=== PATIENT | female | born 1990 | race Caucasian/White ===

== ENCOUNTER 2016-08-30 16:20 | Emergency (ER) | payer OTHER ==
--- NOTE | 2016-08-30 16:33 | PDOC ---
Rapid Medical Evaluation Time Seen by Provider: 08/30/16 16:29 Medical Evaluation: Allergies Allergy/AdvReac Type Severity Reaction Status Date / Time No Known Allergies Allergy Verified 08/30/16 16:29 08/30/16 16:30 RME Note: I have performed a brief, in-person evaluation of this patient . This patient presents with CC: Post C section ; noted discharge from site Pertinent PE findings are: 1 cm open area left lateral surgical site I have ordered: nothing The patient will proceed to ED for further evaluation. JR
[2016-08-30 16:39] VITALS: BP 124/86; PULSE 78; TEMP 97.6; BMI 32.4
--- NOTE | 2016-08-30 17:15 | PDOC ---
History of Present Illness - General Chief Complaint: Wound Stated Complaint: INFECTED WOUND Time Seen by Provider: 08/30/16 16:29 History Source: Patient Exam Limitations: No Limitations - History of Present Illness Initial Comments: 08/30/16 17:09 25 yr female s/p csection 07/19/16 presents with one day open are at the surgical site. no drainage or fever, no fouls smell. Timing/Duration: reports: just prior to arrival Severity: Yes: mild Past History - Past Medical History Allergies/Adverse Reactions: Allergies Allergy/AdvReac Type Severity Reaction Status Date / Time No Known Allergies Allergy Verified 08/30/16 16:29 Home Medications: Ambulatory Orders NK [No Known Home Medication] 08/30/16 Asthma: No Cancer: No Cardiac Disorders: No Diabetes: No HTN: No Seizures: No Thyroid Disease: No Other medical history: none - Surgical History Abdominal Surgery: Yes (c section) - Immunization History Immunization Up to Date: Yes - Psycho/Social/Smoking Cessation Hx Anxiety: No Suicidal Ideation: No Smoking History: Never smoked Have you smoked in the past 12 months: No Number of Cigarettes Smoked Daily: 0 Cigars Per Day: 0 Information on smoking cessation initiated: No Hx Alcohol Use: No Drug/Substance Use Hx: No Substance Use Type: None Hx Substance Use Treatment: No Review of Systems - Review of Systems Able to Perform ROS?: Yes Is the patient limited Bengali proficient: No Constitutional: No: Symptoms Reported HEENTM: No: Symptoms Reported Respiratory: No: Symptoms reported Cardiac (ROS): No: Symptoms Reported ABD/GI: No: Symptoms Reported : No: Symptoms Reported Musculoskeletal: No: Symptoms Reported Integumentary: Yes: Symptoms Reported *Physical Exam - Vital Signs Last Vital Signs Temp Pulse Resp BP Pulse Ox 97.6 F 78 18 124/86 100 08/30/16 16:29 08/30/16 16:29 08/30/16 16:29 08/30/16 16:29 08/30/16 16:29 - Physical Exam General Appearance: Yes: Nourished, Appropriately Dressed HEENT: positive: EOMI, SAULO Gastrointestinal/Abdominal: positive: Normal Bowel Sounds, Soft, Other (left lowerabdomen with well healed surgical transverese scar. outer left corner with 1.0cm open area no drainage, superficial ) Procedures - Laceration/Wound Repair Left Lower Abdomen Wound Length: to 2.5 cm Wound Explored: clean Wound's Depth, Shape: superficial Progress: 08/30/16 17:11 cleaned with saline and betadine, bacitracin and bandaid placed Medical Decision Making - Medical Decision Making 08/30/16 17:11 cc: open wound for less than 12hrs surgical csection 07/19/16 no drainage or discharge will clean and apply bacitracin and bandaid to the area. wound care explained to pt via emirati translation all questions asked and answered *DC/Admit/Observation/Transfer Diagnosis at time of Disposition: Wound dehiscence, - Discharge Dispostion Disposition: HOME Condition at time of disposition: Good - Patient Instructions Additional Instructions: keep clean with antibacterial soap and water dry completely apply a thin layer of Bacitracin antibacterial ointment and cover with a bandaid until healed return to ER or see your structural metal fabricator apprentice if any worsening symptoms Mantener limpio con jabn antibacteriano y agua Secar completamente aplicar vikram nicholas capa de [place] antibacteriana de Bacitracina y cubrir con un bandaid hasta que se cure Regrese a la narda de emergencias o consulte a bolton gineclogo si hay algn empeoramiento de los sntomas
== END 2016-08-30 17:22 | disposition home or self-care (01) ==
LOC: JERFT 16:20
DX: O90.0 Disruption of cesarean delivery wound (principal)
CPT/HCPCS: 99281-25

== ENCOUNTER 2017-07-20 20:06 | Emergency (ER) | payer OTHER ==
--- NOTE | 2017-07-20 21:33 | PDOC ---
Rapid Medical Evaluation Time Seen by Provider: 07/20/17 21:28 Medical Evaluation: Allergies Allergy/AdvReac Type Severity Reaction Status Date / Time No Known Allergies Allergy Verified 08/30/16 16:29 I have performed a brief in-person evaluation of this patient. The patient presents with a chief complaint of: LLQ abd pain radiating to back x 5 days with dysuria Pertinent physical exam findings: TTP of left pelvis, LLQ and left flank. No CVA TTP I have ordered the following: UA/hcg/culture, labs The patient will proceed to the ED for further evaluation.
[2017-07-20 21:34] VITALS: BP 147/102; PULSE 98; TEMP 99.4; BMI 30.2
[2017-07-20 22:11] LABS: BASO % 0.3 % (0-2.0); EOS % 0.8 % (0-4.5); LYMPH % 32.9 % (8-40); MCH 29.2 pg (25.7-33.7); MCHC 33.3 g/dl (32.0-36.0); MEAN CELL VOLUME 87.7 fl (80-96); MEAN PLT VOLUME 8.8 fl (7.5-11.1); MONO % 4.8 % (3.8-10.2); NEUT % 61.2 % (42.8-82.8); PLATELET COUNT 274 K/MM3 (134-434); RBC 4.79 M/mm3 (3.60-5.2); RDW 13.4 % (11.6-15.6); WHITE BLOOD COUNT 11.3 K/mm3 (4.0-10.0)
[2017-07-20 22:31] LABS: HCG,QUALITATIVE URINE NEGATIVE
[2017-07-20 22:33] LABS: URINE APPEARANCE CLEAR; URINE BILIRUBIN NEGATIVE (NEGATIVE); URINE BLOOD 2+ (NEGATIVE); URINE COLOR STRAW; URINE GLUCOSE (UA) NEGATIVE (NEGATIVE); URINE KETONE NEGATIVE (NEGATIVE); URINE LEUK ESTERASE NEGATIVE (NEGATIVE); URINE NITRITE NEGATIVE (NEGATIVE); URINE PROTEIN NEGATIVE (NEGATIVE); URINE UROBILINOGEN NEGATIVE mg/dL (0.2-1.0)
[2017-07-20 22:44] LABS: EPI CELLS RARE /HPF (FEW)
[2017-07-20 22:50] LABS: ALBUMIN 4.1 g/dl (3.4-5.0); ANION GAP 9 (8-16); BLOOD UREA NITROGEN 15 mg/dL (7-18); CHLORIDE 104 mmol/L (98-107); CO2 27 mmol/L (21-32); GLUCOSE,RANDOM 95 mg/dL (74-106); POTASSIUM 4.2 mmol/L (3.5-5.1); SGOT/AST 21 U/L (15-37); SGPT/ALT 34 U/L (12-78); SODIUM 140 mmol/L (136-145)
[2017-07-20 22:53] LABS: ALK PHOS 123 U/L (45-117); BILIRUBIN,TOTAL 0.2 mg/dL (0.2-1.0); CREATININE 0.9 mg/dL (0.55-1.02); TOT PROT 7.7 g/dl (6.4-8.2)
[2017-07-20] MEDS ORDERED: LEVOFLOXACIN 500 MG TABLET (FP) PO ONE (23:34)
[2017-07-20] MEDS ORDERED: IBUPROFEN 400 MG TABLET (FP) PO ONE (23:34)
--- NOTE | 2017-07-20 23:34 | PDOC ---
History of Present Illness - General History Source: Patient <Facundo Velasco - Last Filed: 07/20/17 23:36> - History of Present Illness Initial Comments: 07/20/17 23:43 Patient is a 26 F, with no significant PMHx, who presents with 5 days dysuria. Patient admits to LLQ abdominal pain upon urination that radiates to her back. Denies fever, chills. Denies hematuria, frequency, incontinence, or other urinary complaints. Surgical Hx: (Jun 2016) <Tory Aguilar - Last Filed: 07/20/17 23:45> - General Chief Complaint: Pain, Acute Stated Complaint: ABD PAIN Time Seen by Provider: 07/20/17 21:28 Past History - Past Medical History Asthma: No Cancer: No Cardiac Disorders: No COPD: No Diabetes: No HTN: No Seizures: No Thyroid Disease: No - Surgical History Abdominal Surgery: Yes (c section) - Immunization History Immunization Up to Date: Yes - Suicide/Smoking/Psychosocial Hx Smoking History: Never smoked Have you smoked in the past 12 months: No Number of Cigarettes Smoked Daily: 0 Cigars Per Day: 0 Hx Alcohol Use: No Drug/Substance Use Hx: No Substance Use Type: None Hx Substance Use Treatment: No <KbrobynFacundo ann - Last Filed: 07/20/17 23:36> <Tory Aguilar - Last Filed: 07/20/17 23:45> - Past Medical History Allergies/Adverse Reactions: Allergies Allergy/AdvReac Type Severity Reaction Status Date / Time No Known Allergies Allergy Verified 07/20/17 21:31 Home Medications: Ambulatory Orders Acetaminophen [Tylenol] 325 mg PO QID PRN 07/20/17 Ibuprofen 800 mg PO TID #30 tablet 07/20/17 Levofloxacin [Levaquin -] 500 mg PO DAILY #4 tablet 07/20/17 Review of Systems - Review of Systems Comments:: 07/20/17 23:43 CONSTITUTIONAL: Absent: fever, no chills, no fatigue EYES: Absent: visual changes ENT: Absent: ear pain, no sore throat CARDIOVASCULAR: Absent: chest pain, no palpitations RESPIRATORY: Absent: cough, no SOB GI: Present: LLQ abdominal pain, flank pain. Absent:no nausea, no vomiting, no constipation, no diarrhea GENITOURINARY: Present: dysuria Absent:, no frequency, no hematuria MUSCULOSKELETAL: Absent: no arthralgia, no myalgia SKIN: Absent: rash <Tory Aguilar - Last Filed: 07/20/17 23:45> *Physical Exam - Vital Signs Last Vital Signs Temp Pulse Resp BP Pulse Ox 99.4 F 98 H 22 147/102 98 07/20/17 21:33 07/20/17 21:33 07/20/17 21:33 07/20/17 21:33 07/20/17 21:33 <KbrobiFacundo - Last Filed: 07/20/17 23:36> - Vital Signs Last Vital Signs Temp Pulse Resp BP Pulse Ox 99.4 F 98 H 22 147/102 98 07/20/17 21:33 07/20/17 21:33 07/20/17 21:33 07/20/17 21:33 07/20/17 21:33 - Physical Exam Comments: 07/20/17 23:43 GENERAL: Well-appearing, well-nourished. No apparent distress. HEENT: Normocephalic, atraumatic. PERRL, EOM intact. CARDIOVASCULAR: Normal S1, S2. Regular rate and rhythm. PULMONARY: Clear to auscultation bilaterally. BACK/ABDOMEN: Mild left cva tenderness.Mild suprapubic tenderness.Soft, non-distended EXTREMITIES: Normal ROM in all four extremities. No gross deformities. SKIN: Warm, dry. No rash NEUROLOGICAL: No focal neurological deficits. <LaurenTory - Last Filed: 07/20/17 23:45> ED Treatment Course - LABORATORY CBC & Chemistry Diagram: 07/20/17 21:41 07/20/17 21:41 - ADDITIONAL ORDERS Additional order review: Laboratory Results 07/20/17 07/20/17 21:41 21:30 Sodium 140 Potassium 4.2 Chloride 104 Carbon Dioxide 27 Anion Gap 9 BUN 15 Creatinine 0.9 Creat Clearance w eGFR > 60 Random Glucose 95 Calcium 9.0 Total Bilirubin 0.2 AST 21 ALT 34 Alkaline Phosphatase 123 H Total Protein 7.7 Albumin 4.1 Urine Color Straw Urine Appearance Clear Urine pH 6.0 Ur Specific [place] 1.009 Urine Protein Negative Urine Glucose (UA) Negative Urine Ketones Negative Urine Blood 2+ H Urine Nitrite Negative Urine Bilirubin Negative Urine Urobilinogen Negative Ur Leukocyte Esterase Negative Urine WBC (Auto) 1 Urine RBC (Auto) 16 Ur Epithelial Cells Rare Urine HCG, Qual Negative 07/20/17 21:41 RBC 4.79 MCV 87.7 MCHC 33.3 RDW 13.4 MPV 8.8 Neutrophils % 61.2 Lymphocytes % 32.9 D Monocytes % 4.8 Eosinophils % 0.8 Basophils % 0.3 <Facundo Velasco - Last Filed: 07/20/17 23:36> - LABORATORY CBC & Chemistry Diagram: 07/20/17 21:41 07/20/17 21:41 - ADDITIONAL ORDERS Additional order review: Laboratory Results 07/20/17 07/20/17 21:41 21:30 Sodium 140 Potassium 4.2 Chloride 104 Carbon Dioxide 27 Anion Gap 9 BUN 15 Creatinine 0.9 Creat Clearance w eGFR > 60 Random Glucose 95 Calcium 9.0 Total Bilirubin 0.2 AST 21 ALT 34 Alkaline Phosphatase 123 H Total Protein 7.7 Albumin 4.1 Urine Color Straw Urine Appearance Clear Urine pH 6.0 Ur Specific [place] 1.009 Urine Protein Negative Urine Glucose (UA) Negative Urine Ketones Negative Urine Blood 2+ H Urine Nitrite Negative Urine Bilirubin Negative Urine Urobilinogen Negative Ur Leukocyte Esterase Negative Urine WBC (Auto) 1 Urine RBC (Auto) 16 Ur Epithelial Cells Rare Urine HCG, Qual Negative 07/20/17 21:41 RBC 4.79 MCV 87.7 MCHC 33.3 RDW 13.4 MPV 8.8 Neutrophils % 61.2 Lymphocytes % 32.9 D Monocytes % 4.8 Eosinophils % 0.8 Basophils % 0.3 <Tory Aguilar - Last Filed: 07/20/17 23:45> Medical Decision Making - Medical Decision Making 07/20/17 23:39 Dr. Velasco: The scribe's documentation has been prepared under my direction and personally reviewed by me in its entirery. I confirm that the note above accurately reflects all work, treatment, procedures, and medical decision making performed by me. Patient with symptoms of dysuria, although UA is negative for UTI. Will treat symptomatically. Pt to follow up with her pcp. <Facundo Velasco - Last Filed: 07/20/17 23:36> *DC/Admit/Observation/Transfer - Discharge Dispostion Admit: No <Facunod Velasco - Last Filed: 07/20/17 23:36> - Attestations Scribe Attestion: 07/20/17 23:45 Documentation prepared by Tory Aguilar, acting as senior medical writer for Facundo Velasco MD. <Tory Aguilar - Last Filed: 07/20/17 23:45> Diagnosis at time of Disposition: Dysuria - Discharge Dispostion Disposition: HOME Condition at time of disposition: Stable - Prescriptions Prescriptions: Ibuprofen 800 mg PO TID #30 tablet Levofloxacin [Levaquin -] 500 mg PO DAILY #4 tablet - Referrals Referrals: Irving Corcoran MD [Staff Physician] - - Patient Instructions Printed Discharge Instructions: DI for Dysuria -- Adult Additional Instructions: Take medications as directed.. Drink plenty of fluids. Follow up with your primary care doctor as soon as possible. Return if any problems. Print Language: PALAUAN
[2017-07-20] MEDS ORDERED: LEVOFLOXACIN 500 MG TABLET (FP) ONE (23:48)
[2017-07-20] MEDS ORDERED: IBUPROFEN 600 MG TABLET (FP) PO ONE (23:48)
== END 2017-07-20 23:50 | disposition home or self-care (01) ==
LOC: JER 20:06
DX: R30.0 Dysuria (principal)
CPT/HCPCS: 36415; 80053; 81003; 81015; 84703; 85025; 87086; 99282-25

== ENCOUNTER 2017-11-07 16:55 | Emergency (ER) | payer OTHER ==
--- NOTE | 2017-11-07 17:04 | PDOC ---
Rapid Medical Evaluation Time Seen by Provider: 11/07/17 17:00 Medical Evaluation: Allergies Allergy/AdvReac Type Severity Reaction Status Date / Time No Known Allergies Allergy Verified 07/20/17 21:31 11/07/17 17:01 I have performed a brief in-person evaluation of this patient. The patient presents with a chief complaint of: sent for pre-op admission- impacted IUD removal Pertinent physical exam findings: left pelvic tenderness I have ordered the following: labs, morphine The patient will proceed to the ED for further evaluation. Discharge Disposition - Diagnosis Abdominal pain - Referrals - Patient Instructions - Post Discharge Activity
[2017-11-07 17:05] VITALS: TEMP 98.2; BMI 38.7
[2017-11-07 17:46] LABS: BASO % 0.4 % (0-2.0); EOS % 1.4 % (0-4.5); HEMATOCRIT 39.9 % (32.4-45.2); HEMOGLOBIN 13.5 GM/dL (10.7-15.3); LYMPH % 27.1 % (8-40); MCH 29.8 pg (25.7-33.7); MCHC 33.9 g/dl (32.0-36.0); NEUT % 66.1 % (42.8-82.8); PLATELET COUNT 232 K/MM3 (134-434); RBC 4.54 M/mm3 (3.60-5.2); RDW 13.6 % (11.6-15.6); WHITE BLOOD COUNT 10.2 K/mm3 (4.0-10.0)
[2017-11-07 18:02] LABS: INR 1.04 (0.82-1.09); PROTHROMBIN TIME (PATIENT) 11.7 SEC (9.7-13.0)
[2017-11-07] MEDS ORDERED: SODIUM CHLORIDE 1,000 ML IV STA (18:08)
[2017-11-07] MEDS ORDERED: ACETAMINOPHEN 1000 MG/100 ML VIAL (NON FORMULARY) IVPB ONE (18:08)
--- NOTE | 2017-11-07 18:08 | PDOC ---
History of Present Illness - General Chief Complaint: Pain Stated Complaint: admission ABD PAIN Time Seen by Provider: 11/07/17 17:00 - History of Present Illness Initial Comments: 11/07/17 18:03 27 F with no PMH presents to ED with abdominal pain. Pt states that she has had an IUD in place for the past year. Over the past 3 months she began to develop pain in her lower abdomen. Pt describes the pain as constant, radiating towards the back. She also reports occasional vaginal spotting. Denies any abnormal discharge. Denies F/C. Denies N/V/D. Pt was seen by Dr. Quezada, who diagnosed pt with impacted IUD. Pt is scheduled for IUD removal but presents today with pain. Past History - Past Medical History Allergies/Adverse Reactions: Allergies Allergy/AdvReac Type Severity Reaction Status Date / Time No Known Allergies Allergy Verified 11/07/17 17:01 Home Medications: Ambulatory Orders Acetaminophen [Tylenol] 325 mg PO QID PRN 07/20/17 Oxycodone HCl 0.5 tab PO QID PRN #4 tablet MDD 2 11/07/17 Asthma: No Cancer: No Cardiac Disorders: No COPD: No DVT: No Diabetes: No HTN: No Seizures: No Thyroid Disease: No - Surgical History Abdominal Surgery: Yes (c section) - Reproductive History Is Patient Now?: No - Immunization History Immunization Up to Date: Yes - Suicide/Smoking/Psychosocial Hx Smoking History: Never smoked Have you smoked in the past 12 months: No Number of Cigarettes Smoked Daily: 0 Cigars Per Day: 0 Information on smoking cessation initiated: No Hx Alcohol Use: No Drug/Substance Use Hx: No Substance Use Type: None Hx Substance Use Treatment: No Review of Systems - Review of Systems Comments:: 11/07/17 18:07 "GENERAL/CONSTITUTIONAL: No fever or chills. No weakness. HEAD, EYES, EARS, NOSE AND THROAT: No change in vision. No ear pain or discharge. No sore throat. CARDIOVASCULAR: No chest pain or shortness of breath. RESPIRATORY: No cough, wheezing, or hemoptysis. GASTROINTESTINAL: + abdominal pain, No nausea, vomiting, diarrhea or constipation. GENITOURINARY: No dysuria, frequency, or change in urination. MUSCULOSKELETAL: No joint or muscle swelling or pain. No neck or back pain. SKIN: No rash NEUROLOGIC: No headache, vertigo, loss of consciousness, or change in strength/ sensation. ENDOCRINE: No increased thirst. No abnormal weight change. HEMATOLOGIC/LYMPHATIC: No anemia, easy bleeding, or history of blood clots. ALLERGIC/IMMUNOLOGIC: No hives or skin allergy. " *Physical Exam - Vital Signs Last Vital Signs Temp Pulse Resp BP Pulse Ox 98.2 F 100 H 18 148/80 100 11/07/17 17:02 11/07/17 17:02 11/07/17 17:02 11/07/17 17:02 11/07/17 17:02 - Physical Exam Comments: 11/07/17 18:07 "GENERAL: Awake, alert, and fully oriented, in no acute distress. HEAD: No signs of trauma EYES: PERRLA, EOMI, sclera anicteric, conjunctiva clear ENT: Auricles normal inspection, hearing grossly normal, nares patent, oropharynx clear without exudates. Moist mucosa NECK: Nontender, no stepoffs, Normal ROM, supple, no lymphadenopathy, JVD, or masses LUNGS: Breath sounds equal, clear to auscultation bilaterally. No wheezes, and no crackles HEART: Regular rate and rhythm, normal S1 and S2, no murmurs, rubs or gallops ABDOMEN: + suprapubic and LLQ tenderness, normoactive bowel sounds. No guarding , no rebound. No masses EXTREMITIES: Normal range of motion, no edema. No clubbing or cyanosis. No cords, erythema, or tenderness NEUROLOGICAL: Cranial nerves II through XII intact. 5/5 strength and sensation in all extremities, Normal speech, normal gait, normal cerebellar function SKIN: Warm, Dry, normal turgor, no rashes or lesions noted. " ED Treatment Course - LABORATORY CBC & Chemistry Diagram: 11/07/17 17:33 11/07/17 17:33 - ADDITIONAL ORDERS Additional order review: 11/07/17 17:33 RBC 4.54 MCV 88.0 MCHC 33.9 RDW 13.6 MPV 9.0 Neutrophils % 66.1 Lymphocytes % 27.1 Monocytes % 5.0 Eosinophils % 1.4 Basophils % 0.4 Medical Decision Making - Medical Decision Making 11/07/17 18:10 27 F with lower abdominal pain x 3 months, likely 2/2 impacted IUD. - Labs - IVF, pain control - Consult Dr. Quezada *DC/Admit/Observation/Transfer Diagnosis at time of Disposition: Abdominal pain Qualifiers: Abdominal location: lower abdomen, unspecified Qualified Code(s): R10.30 - Lower abdominal pain, unspecified - Discharge Dispostion Disposition: HOME Condition at time of disposition: Improved - Prescriptions Prescriptions: Oxycodone HCl 0.5 tab PO QID PRN #4 tablet MDD 2 PRN Reason: Pain - Referrals Referrals: Antonia Quezada MD [Staff Physician] - - Patient Instructions Printed Discharge Instructions: DI for Abdominal Pain-Adult Additional Instructions: Regrese al departamento de emergencia de inmediato con CUALQUIER sntoma nuevo, persistente o que empeore, kari empeoramiento del dolor abdominal, fiebre, incapacidad para tolerar la ingesta oral, dolor en el pecho, dificultad para respirar o cualquier otra inquietud. Mantente marin hidratado. [place] 1/2 percocet si el tylenol no es efectivo. DEBE llamar y hacer un seguimiento con el Dr. Quezada a fines de esta semana para bolton reevaluacin. [place] visita al departamento de emergencia no est completa sin un seguimiento con bolton mdico para la reevaluacin. Asegrese de que bolton m dico revise los resultados de bolton evaluacin de emergencia. Return to the emergency department immediately with ANY new, persistent or worsening symptoms including worsening abdominal pain, fevers, inability to tolerate oral intake, chest pain, shortness of breath or any other concerns. Stay well hydrated. Take 1/2 percocet if the tylenol is not effective. You MUST call and follow up with Dr. Quezada later this week for reevaluation. Your emergency department visit is not complete without a followup with your doctor for reevaluation. Please make sure your doctor reviews the results of your emergency evaluation. Print Language: BELARUSIAN - Post Discharge Activity
[2017-11-07 18:09] LABS: HCG,QUALITATIVE URINE NEGATIVE
[2017-11-07 18:12] LABS: URINE APPEARANCE CLEAR; URINE BILIRUBIN NEGATIVE (<2.0 mg/dL); URINE COLOR STRAW; URINE GLUCOSE (UA) NEGATIVE (NEGATIVE); URINE KETONE NEGATIVE (NEGATIVE); URINE LEUK ESTERASE TRACE (NEGATIVE); URINE NITRITE NEGATIVE (NEGATIVE); URINE PROTEIN NEGATIVE (NEGATIVE); URINE UROBILINOGEN NEGATIVE mg/dL (0.2-1.0)
[2017-11-07 18:14] LABS: CHLORIDE 107 mmol/L (98-107); POTASSIUM 3.6 mmol/L (3.5-5.1); SODIUM 142 mmol/L (136-145)
[2017-11-07 18:24] LABS: EPI CELLS FEW /HPF (FEW)
[2017-11-07] MEDS ORDERED: ACETAMINOPHEN INJECTION 100 ML IVPB ONE (18:46)
[2017-11-07 18:55] LABS: ALK PHOS 108 U/L (45-117); ANION GAP 7 (8-16); BILIRUBIN,TOTAL 0.2 mg/dL (0.2-1.0); BLOOD UREA NITROGEN 10 mg/dL (7-18); CALCIUM 8.7 mg/dL (8.5-10.1); CO2 28 mmol/L (21-32); CREATININE 0.6 mg/dL (0.55-1.02); GLUCOSE,RANDOM 98 mg/dL (74-106); SGOT/AST 16 U/L (15-37); SGPT/ALT 17 U/L (12-78); TOT PROT 7.3 g/dl (6.4-8.2)
--- NOTE | 2017-11-07 19:26 | PDOC ---
*Physical Exam - Vital Signs Last Vital Signs Temp Pulse Resp BP Pulse Ox 98.2 F 100 H 18 148/80 100 11/07/17 17:02 11/07/17 17:02 11/07/17 17:02 11/07/17 17:02 11/07/17 17:02 ED Treatment Course - LABORATORY CBC & Chemistry Diagram: 11/07/17 17:33 11/07/17 17:33 - ADDITIONAL ORDERS Additional order review: Laboratory Results 11/07/17 11/07/17 11/07/17 17:59 17:33 17:33 PT with INR 11.70 INR 1.04 Sodium 142 Potassium 3.6 Chloride 107 Carbon Dioxide 28 Anion Gap 7 L BUN 10 Creatinine 0.6 Creat Clearance w eGFR > 60 Random Glucose 98 Calcium 8.7 Total Bilirubin 0.2 AST 16 ALT 17 Alkaline Phosphatase 108 Total Protein 7.3 Albumin 4.0 Urine Color Straw Urine Appearance Clear Urine pH 7.0 Ur Specific [place] 1.010 Urine Protein Negative Urine Glucose (UA) Negative Urine Ketones Negative Urine Blood 3+ H Urine Nitrite Negative Urine Bilirubin Negative Urine Urobilinogen Negative Ur Leukocyte Esterase Trace Urine WBC (Auto) 3 Urine RBC (Auto) <1 Ur Epithelial Cells Few Urine HCG, Qual Negative 11/07/17 17:33 RBC 4.54 MCV 88.0 MCHC 33.9 RDW 13.6 MPV 9.0 Neutrophils % 66.1 Lymphocytes % 27.1 Monocytes % 5.0 Eosinophils % 1.4 Basophils % 0.4 - Medications Given in the ED: ED Medications Discontinued Medications Generic Name Dose Route Start Last Admin Trade Name Heribertoq PRN Reason Stop Dose Admin Acetaminophen 1,000 mg 11/07/17 18:08 11/07/17 18:47 Ofirmev Injection - IVPB 11/07/17 18:09 1,000 mg ONCE ONE Administration Sodium Chloride 1,000 mls @ 1,000 mls/hr 11/07/17 18:08 11/07/17 18:47 Normal Saline - IV 11/07/17 19:07 1,000 mls/hr ASDIR STA Administration Medical Decision Making - Medical Decision Making 11/07/17 19:25 pt signed out to me from dr. 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 pt notes she has had sporatic pain/bleeding since july, and the pain is a bit worse than usual, not significantly improved with the tylenol she has been taking. no associated fever/chills, n/v, diarrhea. labs reviewed will obtain US will reassess 11/07/17 21:24 pt feeling improved Abdomen was reassessed it is soft and nontender the patient's ultrasound was reviewed with no acute. I will discharge patient to follow with Dr. Spencer Return precautions were discussed I discussed the physical exam findings, ancillary test results and final diagnoses with the patient. I answered all of the patient's questions. The patient was satisfied with the care received and felt comfortable with the discharge plan and treatment plan. The patient will call their primary care physician within 24 hours to arrange follow-up and will return to the Emergency Department with any new, persistent or worsening symptoms. *DC/Admit/Observation/Transfer Diagnosis at time of Disposition: Abdominal pain Qualifiers: Abdominal location: lower abdomen, unspecified Qualified Code(s): R10.30 - Lower abdominal pain, unspecified - Discharge Dispostion Condition at time of disposition: Improved Decision to Admit order: No - Referrals Referrals: Antonia Quezada MD [Staff Physician] - - Patient Instructions Printed Discharge Instructions: DI for Abdominal Pain-Adult Additional Instructions: Regrese al departamento de emergencia de inmediato con CUALQUIER sntoma nuevo, persistente o que empeore, kair empeoramiento del dolor abdominal, fiebre, incapacidad para tolerar la ingesta oral, dolor en el pecho, dificultad para respirar o cualquier otra inquietud. Mantente marin hidratado. [place] 1/2 percocet si el tylenol no es efectivo. DEBE llamar y hacer un seguimiento con el Dr. Quezada a fines de esta semana para martinez reevaluacin. [place] visita al departamento de emergencia no est completa sin un seguimiento con martinez mdico para la reevaluacin. Asegrese de que martinez m dico revise los resultados de martinez evaluacin de emergencia. Return to the emergency department immediately with ANY new, persistent or worsening symptoms including worsening abdominal pain, fevers, inability to tolerate oral intake, chest pain, shortness of breath or any other concerns. Stay well hydrated. Take 1/2 percocet if the tylenol is not effective. You MUST call and follow up with Dr. Quezada later this week for reevaluation. Your emergency department visit is not complete without a followup with your doctor for reevaluation. Please make sure your doctor reviews the results of your emergency evaluation. Print Language: LITHUANIAN - Post Discharge Activity
[2017-11-07] MEDS ORDERED: morphine CARPU-JECT 2 MG/1 ML DISP.SYRIN IVPUSH ONE (19:28)
[2017-11-07] MEDS ORDERED: morphine SULFATE 4 MG/ML VIAL ONE (19:56)
[2017-11-07 21:43] VITALS: BP 107/55; PULSE 77
== END 2017-11-07 21:55 | disposition home or self-care (01) ==
LOC: JER 16:55
DX: R10.33 Periumbilical pain (principal); Z97.5 Presence of (intrauterine) contraceptive device
CPT/HCPCS: 36415; 76830-TC; 80053; 81003; 81015; 84703; 85025; 85610; 86850; 86900; 86901; 99283-25; J0131; J7030

== ENCOUNTER 2017-11-17 04:57 | Day surgery (SDC) | payer OTHER ==
[2017-11-14 17:20] VITALS: BMI 36.2
[2017-11-17] MEDS ORDERED: ONDANSETRON 4 MG/2 ML VIAL IVPUSH PRN (07:58)
[2017-11-17] MEDS ORDERED: oxyCODONE HCL 5 MG TABLET PO PRN ×2 (07:58)
[2017-11-17] MEDS ORDERED: LACTATED RINGERS SOLUTION 1,000 ML IV SCH (08:00)
[2017-11-17] MEDS ORDERED: DEXAMETHASONE SOD PHOSPHATE 4 MG/1 ML VIAL ONE (09:05)
[2017-11-17] MEDS ORDERED: MIDAZOLAM HCL 2 MG/2 ML SINGLE DOSE VIAL ONE (09:05)
[2017-11-17] MEDS ORDERED: LIDOCAINE HCL/PF 2% SDV 5ML VIAL ONE (09:05)
[2017-11-17] MEDS ORDERED: PROPOFOL 20 ML ONE (09:06)
[2017-11-17] MEDS ORDERED: ceFAZolin SODIUM 1 GM VIAL IVPB ONE (09:16)
[2017-11-17] MEDS ORDERED: ceFAZolin SODIUM 1 GM VIAL ONE (09:16)
--- NOTE | 2017-11-17 09:17 | HP ---
Past Medical History - Primary Care Physician PCP:: Antonia Chakraborty - Admission Chief Complaint: 27 yrs , LMP 11/10/17 request for removal of IUD due to pain, iud string not visualized, 2 attempts to remove iud failed in the clinic History of Present Illness: pt was seen at [address] [place] [address] . pt had Mirena inserted . she c/o pain mainly left side in pelvic area attempt to remove iud was done by Dr Zack albert failed sono was done on 10/05/17 , iud in uterus noted , small lt ovarian cyst 1.3x1.4 cm possible hemorrhagic cyst suspected 11/01/17 2 nd attempt to remove IUD in The clinic was done by Dr chakraborty after dilatation of cervix , it was not successful. 11/07/17 pt wnt to ER c/o pain , sono was repeated , iud in utero & lt ovary complex cyst was found , pt was premenstural , her period strted on 11/10/17 . 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 No: PID, Polycystic Ovary Syndrome ...: 1 ...Para: 1 ...Term: 1 (c/section for failed induction of labor ) ...LMP: 11/10/17 Heme/Onc: No: Anemia Infectious Disease: No: AIDS, HIV, STD's, Tuberculosis Psych: No: Addictions, Anxiety, Bipolar, Depression, Panic Endocrine: No: Diabetes Mellitus, Hyperthyroidism, Hypothyroidism Dermatology: No: Basal Cell, Cellulitis, Eczema, Melanoma, Psoriasis - Past Surgical History Past Surgical History: Yes: (07/10/2016) Hx Myomectomy: No Hx Transabdominal Cerclage: No - Smoking History Smoking history: Never smoked Have you smoked in the past 12 months: No Aproximately how many cigarettes per day: 0 - Alcohol/Substance Use Hx Alcohol Use: No - Social History History of Recent Travel: No Home Medications - Allergies Allergies/Adverse Reactions: Allergies Allergy/AdvReac Type Severity Reaction Status Date / Time No Known Allergies Allergy Verified 11/14/17 17:20 - Home Medications Home Medications: Ambulatory Orders Acetaminophen [Tylenol] 325 mg PO QID PRN 07/20/17 Physical Exam-OUTSOLE BEVELER Vital Signs: Vital Signs Temperature 98.0 F 11/17/17 08:14 Pulse Rate 77 11/17/17 08:14 Respiratory Rate 20 11/17/17 08:14 Blood Pressure 110/68 11/17/17 08:14 O2 Sat by Pulse Oximetry (%) 99 11/17/17 08:15 Constitutional: Yes: Well Nourished Eyes: Yes: WNL HENT: Yes: WNL Neck: Yes: WNL Cardiovascular: Yes: WNL Respiratory: Yes: WNL Gastrointestinal: Yes: WNL ...Rectal Exam: Yes: Deferred Renal/: Yes: WNL Pelvis: Yes: WNL External Genitalia: Yes: Normal Internal Exam Deferred: Yes Vaginal Exam: Yes: Normal Cervix: Yes: Normal, Other (iud string not visualized) Uterus: Yes: Normal, Freely Moveable, Anteverted, Firm Adnexa: Normal: Bilateral, Not Palpable: Bilateral Breast(s): Yes: WNL. No: Mass Musculoskeletal: Yes: WNL Extremities: Yes: WNL. No: Calf Tenderness Edema: No Integumentary: Yes: WNL, Incision (old pfannensteil scar) Neurological: Yes: WNL ...Motor Strength: WNL Psychiatric: Yes: WNL, Alert, Oriented Labs: Laboratory Tests 07/09/16 11/14/17 11/14/17 16:33 17:49 17:49 WBC RBC Hgb Hct Plt Count Neutrophils % Lymphocytes % Monocytes % PT with INR INR PTT (Actin FS) 30.6 Sodium 139 Potassium 4.1 Chloride 107 Carbon Dioxide 27 BUN 9 Creat Clearance w eGFR > 60 Random Glucose 98 AST 12 L ALT 16 Beta HCG, Quant < 1.0 Urine Protein Negative Urine HCG, Qual 11/14/17 11/14/17 11/17/17 17:49 17:49 07:32 WBC 10.7 H RBC 4.53 Hgb 13.6 Hct 40.0 Plt Count 221 Neutrophils % 68.2 Lymphocytes % 25.9 Monocytes % 4.8 PT with INR 10.10 INR 0.89 PTT (Actin FS) Sodium Potassium Chloride Carbon Dioxide BUN Creat Clearance w eGFR Random Glucose AST ALT Beta HCG, Quant Urine Protein Urine HCG, Qual Negative Problem List - Problem (1) IUD complication Code(s): T83.9XXA - UNSP COMPLICATION OF GENITOURINARY PROSTH DEV/GRFT, INIT Qualifiers: Mechanical complication type: displacement Assessment/Plan ass. retained iud in utero, with pelvic pain Plan hysteriscopy, d&C removal of iud
--- NOTE | 2017-11-17 10:03 | OP ---
Operative Note - Note: Operative Date: 11/17/17 Pre-Operative Diagnosis: iud complication displacemnt inutero Operation: hysteroscopy, removal of iud , d&C Findings: Ut av ne, uterocervical length 9 cm IUD higher on ltside at lt ostium , string curled upward rt ostium free adnexa PARENT AIDE Surgeon: Antonia Quezada Anesthesiologist/LITHOGRAPH PRESS OPERATOR TINWARE: Blair Azar Anesthesia: General Specimens Removed: mirena IUD,. em curettings Estimated Blood Loss (mls): 2 (or less ) Fluid Volume Replaced (mls): 500 (iv ancef 1 gmmivpb given ) Operative Report Dictated: Yes
[2017-11-17] MEDS ORDERED: ACETAMINOPHEN 325 MG TABLET (FP) PO PRN (10:07)
[2017-11-17] MEDS ORDERED: IBUPROFEN 400 MG TABLET (FP) PO PRN (10:07)
--- NOTE | 2017-11-17 10:43 | OP ---
DATE OF OPERATION: 11/17/2017 PREOPERATIVE DIAGNOSIS: Intrauterine device complication, displacement in utero. OPERATION: Hysteroscopy, removal of intrauterine device, dilatation and curettage. SURGEON: Antonia Quezada MD ANESTHESIOLOGIST: Blair Azar MD ANESTHESIA: General. FINDINGS: This is a 27-year-old 1, para 1-0-0-1 status post delivery a year ago and LMP on November 10, 2017, had a Mirena IUD inserted, and she complains of pelvic pain on the left side and requests for removal of IUD. IUD strings not visualized. Two attempts failed in the clinic, and sonogram shows IUD in the uterus. So, patient is admitted for IUD removal under hysteroscopic guidance. PROCEDURE: Patient is taken to the operating room table. General anesthesia was given. Lithotomy position was given. The pubis perineum, and vagina were painted with Betadine and draped in usual manner. Time out was done, and she was given IV Ancef 1 g by anesthesiologist. Pelvic examination was done. The uterus was anteverted, normal size. Cervix was posterior. The adnexa were not palpable. Weighted speculum was put. IUD string was not seen, not felt. Anterior lip of the cervix was held with a single-tooth tenaculum. The hysteroscope was introduced into the uterine cavity, and the IUD was visualized on the left side, obliterating the left ostium. The right ostium was free, and the rest of the endometrial cavity appeared normal. The IUD string was curled upwards. Then, the cervix was further dilated up to number 12 dilator, and then, with packing forceps, IUD from the left side of uterine cavity was removed. Then, curetting was done and sent for pathology examination. Patient tolerated the procedure well. All instruments were removed, and she was transferred to the recovery room in stable condition. Monse [id number] MTDD
[2017-11-17 11:04] VITALS: TEMP 98.1
[2017-11-17] MEDS ORDERED: oxyCODONE HCL 5 MG TABLET ONE (11:19)
[2017-11-17] MEDS ORDERED: oxyCODONE HCL 5 MG TABLET PO ONE (11:25)
[2017-11-17 13:07] VITALS: BP 100/60; PULSE 82
--- NOTE | 2017-11-18 19:06 | PATH ---
Surgical Pathology Report Patient Name: JACKIE KIRKLAND [facility]. Rec. #: [id number] /Age/Gender: 1990 (Age: 27) / F Account: [id number] Location: [facility] SURGICAL Taken: 11/17/2017 Received: 11/17/2017 Reported: 11/18/2017 Physicians: Antonia Quezada M.D. Specimen(s) Received A: REMOVED IUD B: ENDOMETRIAL CURETTINGS Clinical History IUD migrated and left ostium Final Diagnosis A. INTRAUTERINE DEVICE (IUD), REMOVAL: INTRAUTERINE DEVICE (IUD). MACROSCOPIC DIAGNOSIS. B. ENDOMETRIAL CURETTINGS, DILATION AND CURETTAGE: FRAGMENTS OF INACTIVE ENDOMETRIAL GLANDS WITH DECIDUALIZED STROMA CONSISTENT WITH EXOGENOUS HORMONE EFFECT. Electronically Signed Dionne Alston M.D. Gross Description A. Received fresh labeled "IUD removed," is a 3 cm in length T-shaped device with attached string, consistent with an IUD. No soft tissue is present. No sections are submitted, gross only. B. Received in formalin labeled "endometrial curetting," is a 2.0 x 1.5 x 0.3 cm aggregate of red-brown soft tissue fragments. The formalin is filtered and the specimen is entirely submitted in one cassette. 11/17/201711/17/2017
== END 2017-11-17 13:30 | disposition home or self-care (01) ==
LOC: JASU-SURG 04:57
PROVIDERS: ATTEND Obstetrics & Gynecology
PROC: 0UC98ZZ Extirpation of Matter from Uterus, Via Natural or Artificial Opening Endoscopic (ICD-10-PCS; principal; 2017-11-17 09:00)
PROC: 0UDB8ZX Extraction of Endometrium, Via Natural or Artificial Opening Endoscopic, Diagnostic (ICD-10-PCS; 2017-11-17 09:00)
DX: T83.32XA Displacement of intrauterine contraceptive device, initial encounter (principal); Y73.3 Surgical instruments, materials and gastroenterology and urology devices (including sutures) associated with adverse incidents; Y92.9 Unspecified place or not applicable
CPT/HCPCS: 84703; 94760

== ENCOUNTER 2024-08-10 09:05 | Inpatient (IN) | payer OTHER ==
[2024-08-10 09:52] LABS: BASO % 0.2 % (0-2.0); EOS % 1.1 % (0-4.5); HEMATOCRIT 36.2 % (32.4-45.2); HEMOGLOBIN 12.6 GM/dL (10.7-15.3); LYMPH % 21.3 % (8-40); MCH 30.6 pg (25.7-33.7); MCHC 34.7 g/dl (32.0-36.0); MEAN CELL VOLUME 88.3 fl (80-96); MEAN PLT VOLUME 8.9 fl (7.5-11.1); MONO % 4.8 % (3.8-10.2); NEUT % 72.6 % (42.8-82.8); PLATELET COUNT 191 10^3/uL (134-434); RDW 14.1 % (11.6-15.6); WHITE BLOOD COUNT 8.6 K/mm3 (4.0-10.0)
[2024-08-10 10:29] LABS: CHLORIDE 106 mmol/L (98-107); SODIUM 137 mmol/L (136-145)
[2024-08-10 10:32] LABS: ALBUMIN 2.6 g/dl (3.4-5.0); ANION GAP 7 mmol/L (4-13); CO2 24 mmol/L (21-32)
[2024-08-10 10:33] LABS: BLOOD UREA NITROGEN 9.5 mg/dL (7-18); GLUCOSE,RANDOM 83 mg/dL (74-106)
[2024-08-10 10:36] LABS: CREATININE 0.5 mg/dL (0.55-1.3); SGOT/AST 12 U/L (15-37); SGPT/ALT 13 U/L (13-61)
[2024-08-10 10:37] LABS: BILIRUBIN,TOTAL 0.3 mg/dL (0.2-1)
[2024-08-10 10:39] LABS: ALK PHOS 181 U/L (45-117)
[2024-08-10 13:47] LABS: INR 0.9 (0.83-1.09); PROTHROMBIN TIME (PATIENT) 9.8 SEC (9.7-13.0)
[2024-08-10 14:15] LABS: ACTIVATED PTT 25.1 SECONDS (25.2-36.5)
[2024-08-10 16:25] VITALS: BMI 45.7
[2024-08-10] MEDS ORDERED: morphine SULFATE/PF 1 MG/2 ML (2cc Syringe - QUVA) ONE (17:38)
[2024-08-10] MEDS ORDERED: FENTANYL CITRATE/PF 50 MCG/ML VIAL ONE (17:39)
[2024-08-10 19:16] LABS: CORD BASE EXCESS -3.3 mmol/L (0-2); CORD HCO3 24.7 mmHg (20-29); CORD PCO2 56.8 mmHg (30-78); CORD pH 7.257 (7.14-7.44)
[2024-08-10 19:17] LABS: CORD BASE EXCESS -4.5 mmol/L (0-2); CORD PCO2 45.8 mmHg (30-78); CORD pH 7.3 (7.14-7.44)
[2024-08-10] MEDS ORDERED: METHYLERGONOVINE MALEATE 0.2 MG/1 ML AMP IM PRN (19:41)
[2024-08-10] MEDS: OXYTOCIN 20 UNITS in 0.9% NS 20 UNIT/1,000 ML INFUS.BAG IV SCH (20:05)
[2024-08-10] MEDS ORDERED: OXYTOCIN 20 UNITS in 0.9% NS 20 UNIT/1,000 ML INFUS.BAG IV ONE (20:05)
[2024-08-10] MEDS ORDERED: PROPOFOL 20 ML ONE (20:09)
[2024-08-10] MEDS ORDERED: MIDAZOLAM HCL 2 MG/2 ML SINGLE DOSE VIAL ONE (20:10)
[2024-08-10] MEDS: LACTATED RINGERS SOLUTION 1,000 ML IV ONE (22:15)
[2024-08-11] MEDS: ACETAMINOPHEN 1000 MG/100 ML BAG IVPB PRN (03:25)
[2024-08-11] MEDS ORDERED: oxyCODONE HCL 5 MG TABLET PO PRN (07:41)
[2024-08-11 08:00] LABS: BASO % 0.1 % (0-2.0); EOS % 0.7 % (0-4.5); HEMATOCRIT 33.2 % (32.4-45.2); HEMOGLOBIN 11.2 GM/dL (10.7-15.3); LYMPH % 16.8 % (8-40); MCH 30.1 pg (25.7-33.7); MCHC 33.7 g/dl (32.0-36.0); MEAN CELL VOLUME 89.2 fl (80-96); MEAN PLT VOLUME 9.3 fl (7.5-11.1); MONO % 5.5 % (3.8-10.2); NEUT % 76.9 % (42.8-82.8); PLATELET COUNT 149 10^3/uL (134-434); RBC 3.72 M/mm3 (3.60-5.2); WHITE BLOOD COUNT 9.9 K/mm3 (4.0-10.0)
[2024-08-11] MEDS: IBUPROFEN 800 MG/8 ML IJ IVPB PRN (09:45)
[2024-08-11] MEDS: IBUPROFEN 600 MG TABLET (FP) PO PRN (15:41)
[2024-08-11] MEDS: SIMETHICONE 80 MG TAB.CHEW (FP) PO PRN (19:34)
[2024-08-11] MEDS: oxyCODONE HCL 5 MG TABLET PO PRN (19:34)
[2024-08-12] MEDS: BISACODYL 10 MG SUPP.RECT RC PRN (13:14)
[2024-08-12] MEDS: ACETAMINOPHEN 325 MG TABLET (FP) PO PRN (13:14)
[2024-08-13 07:22] LABS: BASO % 0.2 % (0-2.0); EOS % 2.8 % (0-4.5); HEMATOCRIT 32.5 % (32.4-45.2); HEMOGLOBIN 10.8 GM/dL (10.7-15.3); LYMPH % 29.2 % (8-40); MCH 29.7 pg (25.7-33.7); MCHC 33.1 g/dl (32.0-36.0); MEAN CELL VOLUME 89.8 fl (80-96); MEAN PLT VOLUME 9.2 fl (7.5-11.1); MONO % 5.4 % (3.8-10.2); NEUT % 62.4 % (42.8-82.8); PLATELET COUNT 197 10^3/uL (134-434); RBC 3.62 M/mm3 (3.60-5.2); RDW 13.9 % (11.6-15.6); WHITE BLOOD COUNT 8.2 K/mm3 (4.0-10.0)
[2024-08-13 12:02] VITALS: BP 132/76; PULSE 83; RESP 19; TEMP 97.7
== END 2024-08-13 13:45 | disposition home or self-care (01) | DRG 540 ==
LOC: JPSTO 09:05 → JLDR 10:25 → J3W 23:54
PROVIDERS: ADMIT Obstetrics & Gynecology Obstetrics; ATTEND Obstetrics & Gynecology Obstetrics
PROC: 10D00Z1 Extraction of Products of Conception, Low, Open Approach (ICD-10-PCS; principal; 2024-08-10)
DX: O41.03X0 Oligohydramnios, third trimester, not applicable or unspecified (principal); O34.219 Maternal care for unspecified type scar from previous cesarean delivery; Z3A.38 38 weeks gestation of pregnancy; Z37.0 Single live birth
CPT/HCPCS: 36415; 36600; 59409; 80053; 82803; 85025; 85610; 85730; 86780; 86850; 86900; 86901; 88307-TC; J0131